=== PATIENT | female | born 1965 | race Caucasian/White ===

== ENCOUNTER 2017-12-18 15:39 | Inpatient (IN) | payer MEDICAID ==
[~2017-12-18] VITALS: Ht 167.6 cm; Wt 75.8 kg
[2017-12-18] MEDS ORDERED: ACETAMINOPHEN WITH CODEINE 300/30MG TABLET PO ONE (17:45)
[2017-12-18 18:36] LABS: CLARITY URINE CLEAR (CLEAR); COLOR URINE YELLOW (YELLOW); KETONES URINE NEGATIVE (NEGATIVE); LEUKOCYTE ESTERASE URINE NEGATIVE (NEGATIVE); NITRITE URINE NEGATIVE (NEGATIVE); OCCULT BLOOD URINE 1+ (NEGATIVE); PH URINE 5.5 (4.5-8.0); PROTEIN URINE 2+ (NEGATIVE); SPECIFIC GRAVITY URINE 1.008 (1.005-1.030); UROBILINOGEN URINE 0.2 E.U./dL (0.2-1.0)
[2017-12-18] MEDS ORDERED: MORPHINE SULFATE 2 MG/ML CPJ (NOT FOR IM USE) IV ONE (19:15)
[2017-12-18 19:33] LABS: BASOPHILS % 0.7 % (0.0-2.0); EOSINOPHILS % 14.1 % (0.0-5.0); HEMOGLOBIN. 12.7 g/dL (12.0-16.0); LYMPHOCYTES % 29.2 % (20.0-50.0); MEAN CORPUSCULAR HEMOGLOBIN 32.3 pg (28.0-32.0); MEAN CORPUSCULAR VOLUME 96.6 fL (81.0-99.0); MEAN PLATELET VOLUME 7.8 fl (7.4-10.4); MONOCYTES % 5.8 % (2.0-8.0); NEUTROPHILS % 50.2 % (40.0-76.0); PLATELET 285 x1000/uL (130-400); RED BLOOD CELL COUNT 3.93 mill/uL (4.2-5.4)
[2017-12-18 19:52] LABS: HCG SCREEN NEGATIVE
[2017-12-18] MEDS ORDERED: ONDANSETRON HCL 4MG/2ML INJ IV STA (22:28)
[2017-12-18] MEDS ORDERED: MORPHINE SULFATE 4 MG/ML CPJ (NOT FOR IM USE) IV STA (22:28)
[2017-12-18] MEDS ORDERED: SODIUM CHLORIDE 0.9% 1,000 ML IV ONE (22:28)
[2017-12-18] MEDS ORDERED: LEVOFLOXACIN 750MG PREMIX 150 ML IV ONE (22:30)
[2017-12-18 23:30] LABS: INR 0.9; PROTHROMBIN TIME 9.4 sec (9.1-11.1)
[2017-12-19] MEDS ORDERED: ONDANSETRON HCL 4MG/2ML INJ IV PRN (01:30)
[2017-12-19] MEDS ORDERED: LEVOFLOXACIN 500MG PREMIX 100 ML IV SCH ×2 (01:30→23:00)
[2017-12-19] MEDS: MORPHINE SULFATE 4 MG/ML CPJ (NOT FOR IM USE) IV PRN ×2 (02:51→10:11)
[2017-12-19] MEDS ORDERED: DEXT 5%/0.45% NACL 1000ML 1,000 ML IV SCH (03:00)
[2017-12-19 04:00] VITALS: BP 114/53
[2017-12-19] MEDS ORDERED: ASCO500C15 PO (04:38)
[2017-12-19] MEDS ORDERED: CHOL200010 PO (04:38)
[2017-12-19] MEDS ORDERED: ASCO100T12 PO (04:38)
[2017-12-19] MEDS ORDERED: ATOR20TA65 PO (04:38)
[2017-12-19] MEDS ORDERED: DULO60CA44 PO (04:38)
[2017-12-19] MEDS ORDERED: FERR220S12 PO (04:38)
[2017-12-19] MEDS ORDERED: CYAN-33 PO (04:38)
[2017-12-19] MEDS ORDERED: FURO40TA5 PO (04:38)
[2017-12-19] MEDS ORDERED: ACET12.53 PO (04:38)
[2017-12-19] MEDS ORDERED: CARV6.2548 PO (04:38)
[2017-12-19] MEDS ORDERED: INSLIS SUBCUT (04:38)
[2017-12-19] MEDS ORDERED: MULT-230 MT (04:38)
[2017-12-19] MEDS ORDERED: GLIP5TAB12 PO (04:38)
[2017-12-19] MEDS ORDERED: GABA800T97 PO (04:38)
[2017-12-19] MEDS ORDERED: ASPI-1159 PO (04:38)
[2017-12-19] MEDS ORDERED: LEVVL SQ (04:38)
[2017-12-19] MEDS ORDERED: FAMO20TA8 PO (04:38)
[2017-12-19] MEDS ORDERED: IPRATROPIUM/ALBUTEROL 0.5-3(2.5)MG/3ML NEB HHN PRN (04:45)
[2017-12-19] MEDS ORDERED: METRONIDAZOLE 500 MG PREMIX 100 ML IV SCH ×2 (05:00→18:30)
[2017-12-19 05:16] VITALS: BP 136/69
[2017-12-19 06:34] LABS: BASOPHILS % 0.9 % (0.0-2.0); HEMOGLOBIN. 12.3 g/dL (12.0-16.0); LYMPHOCYTES % 28.4 % (20.0-50.0); MEAN CORPUSCULAR HEMOGLOBIN 32.8 pg (28.0-32.0); MEAN CORPUSCULAR VOLUME 96.4 fL (81.0-99.0); MEAN PLATELET VOLUME 7.7 fl (7.4-10.4); MONOCYTES % 6.3 % (2.0-8.0); NEUTROPHILS % 49.4 % (40.0-76.0); PLATELET 278 x1000/uL (130-400); RED BLOOD CELL COUNT 3.74 mill/uL (4.2-5.4); RED CELL DISTRIBUTION WIDTH 13.1 % (11.6-14.6)
[2017-12-19 08:00] VITALS: BP 128/82
[2017-12-19] MEDS ORDERED: ENOXAPARIN 40MG/0.4ML SYR SUBCUT SCH (09:00)
[2017-12-19] MEDS ORDERED: PANTOPRAZOLE SODIUM 40 MG/VIAL IV SCH (09:00)
[2017-12-19] MEDS ORDERED: KETOROLAC 60MG/2ML VIAL IM SCH (10:00)
[2017-12-19] MEDS ORDERED: KETOROLAC 60MG/2ML VIAL IM PRN (10:15)
[2017-12-19 12:00] VITALS: BP 130/54
[2017-12-19] MEDS ORDERED: TRAMADOL 50MG TABLET PO PRN (12:30)
[2017-12-19] MEDS ORDERED: NICOTINE 14MG PATCH TD SCH (12:45)
[2017-12-19 14:44] LABS: *AMPHETAMINES SCREEN URINE NEGATIVE (NEGATIVE); *BARBITURATES SCREEN URINE NEGATIVE (NEGATIVE); *BENZODIAZEPINES SCREEN URINE NEGATIVE (NEGATIVE); *COCAINE SCREEN URINE NEGATIVE (NEGATIVE); METHADONE URINE SCREEN NEGATIVE (NEGATIVE); OPIATES URINE SCREEN PRESUMTIVE POSITIVE (NEGATIVE)
[2017-12-19 14:45] LABS: CANNABINOID URINE SCREEN NEGATIVE (NEGATIVE); PHENCYCLIDINE URINE SCREEN NEGATIVE (NEGATIVE)
[2017-12-19 15:43] VITALS: BP 148/61
[2017-12-19 16:00] VITALS: BP 148/61
[2017-12-23 04:14] LABS: CHLAMYDIA TRACHOMATIS NAA Negative (Negative); NEISSERIA GONORRHOEAE NAA Negative (Negative)
== END 2017-12-19 16:11 | DRG 463 ==
LOC: ER 15:39 → 6EST 22:36 → ENRESERV 23:10
PROVIDERS: ADMIT Internal Medicine; ATTEND Internal Medicine
DX: N39.0 Urinary tract infection, site not specified (principal); E11.22 Type 2 diabetes mellitus with diabetic chronic kidney disease; Z91.19 Patient's noncompliance with other medical treatment and regimen; I12.9 Hypertensive chronic kidney disease with stage 1 through stage 4 chronic kidney disease, or unspecified chronic kidney disease; E78.5 Hyperlipidemia, unspecified; F11.20 Opioid dependence, uncomplicated; N18.9 Chronic kidney disease, unspecified; F17.210 Nicotine dependence, cigarettes, uncomplicated; Z79.4 Long term (current) use of insulin; Z95.1 Presence of aortocoronary bypass graft; Z79.82 Long term (current) use of aspirin; Z79.899 Other long term (current) drug therapy; Z88.0 Allergy status to penicillin; Z88.6 Allergy status to analgesic agent; Z88.4 Allergy status to anesthetic agent; Z87.440 Personal history of urinary (tract) infections
CPT/HCPCS: 36415; 74176; 80048; 80061; 80305; 81003; 82962; 83036; 84703; 85025; 85610; 87040; 87210; 87491; 87591; 96361; 96365; 96375; 96376; 99285; C1893; C9113; J1650; J1956; J2270; J2405; J3490; J7030